=== PATIENT | female | born 1995 | race Caucasian/White ===

== ENCOUNTER 2023-05-22 07:38 | Outpatient (CLI) | payer OTHER, SELFPAY ==
--- NOTE | 2023-05-22 07:39 | CT_ITS ---
FINAL REPORT TECHNIQUE: Thin section axial CT images of the facial bones and sinuses were obtained without contrast. Coronal reformatted images were also obtained.This study was performed with techniques to keep radiation doses as low as reasonably achievable, (ALARA). Individualized dose reduction techniques using automated exposure control or adjustment of mA and/or kV according to the patient''''s size were employed. CLINICAL HISTORY: black substance in sputum, sinus pain and pressure COMPARISON: None FINDINGS: There is mild mucosal thickening in the maxillary sinuses and multiple ethmoid air cells. No sinus fluid levels are identified. The ostiomeatal units have an unremarkable appearance. There is mild rightward nasal septal deviation with right-sided nasal septal spurring. No fracture or acute bony abnormality is identified. IMPRESSION: Mild mucosal thickening maxillary sinuses and ethmoid air cells. Rightward nasal septal deviation with right-sided spurring. Reviewed, Interpreted and Dictated by Huey Garcia III, MD Transcribed by Kathie Diehl Authenticated and . [facility]
== END 2023-05-22 23:59 ==
LOC: RAD 07:39
PROVIDERS: PCP Nurse Practitioner Family; Visit Provider Nurse Practitioner
DX: J34.3 Hypertrophy of nasal turbinates (principal); J34.89 Other specified disorders of nose and nasal sinuses
CPT/HCPCS: 70486

== ENCOUNTER 2023-05-22 12:40 | Emergency (ER) | payer OTHER, SELFPAY ==
[2023-05-22 12:54] VITALS: BP 121/92; PULSE 68; RESP 18; O2SAT 100; BMI 21.7
--- NOTE | 2023-05-22 13:39 | CT_ITS ---
FINAL REPORT CLINICAL HISTORY: new and persistent headache COMPARISON: None FINDINGS: Axial images of the head were obtained without contrast. Coronal and sagittal reformatted images were also obtained.This study was performed with techniques to keep radiation doses as low as reasonably achievable (ALARA). Individualized dose reduction techniques using automated exposure control or adjustment of mA and/or kV according to the patient's size were employed. There is no evidence of intracranial hemorrhage or mass. The ventricular size is within normal limits. There is no evidence of shift of the midline structures. No abnormal extra axial fluid collection is identified. No skull abnormality is seen on the bone window images. IMPRESSION: No acute intracranial abnormality. Reviewed, Interpreted and Dictated by Huey Garcia III, MD Transcribed by Xin Bales Authenticated and [facility]
--- NOTE | 2023-05-22 13:43 | ED_ITS ---
Discharge Plan Disposition Patient Disposition: Home, Self-Care Prescriptions Prescriptions: No Action gabapentin 100 mg capsule 100 mg PO HS Referrals Follow up/Referrals: Neelam Barbosa APRN [Primary Care Provider] - See instructions Rudy Davis MD [Physician] - See instructions Activity Restrictions/Add. Instructions Additional Instructions/Restrictions: No evidence of emergent medical condition identified today. Specifically had a normal vaginal exam and at this point I suspect that it is very unlikely that you have a respiratory fungal infection as well. Fungal cultures have been sent from your sputum as well as from your vaginal swab. Please follow-up with Dr. Davis. His clinic should call you for an appointment. Initially I would recommend you follow-up with your primary care doctor and your neurologist as previously instructed. Clinical Impressions Clinical Impression: Chronic headaches, Vaginal discharge Instructions Patient Instructions: DI for Urinary Tract Infection (UTI), DI for Urinary Tract Infection in Children Discharge ED Provider: Ata Resendiz General Adult HPI General Chief complaint: Urogenital-Female Stated complaint: Headaches, coughing up black stuff, sen by Kulwinder Hardy Time Seen by Provider: 05/22/23 13:15 Mode of Arrival: Ambulatory Source of Information: Patient Limitations: No Limitations Description of Symptoms (Recalled from ER Triage Doc. by RN): patient reports she was sent over from the ENT office. patient was being seen for black discharge coming from her nose since February. Patient reports in the last week she is also having the same discharge coming from her vagina. Patient is also having severe headaches and neck pain. History of Present Illness HPI narrative: Is a 27-year-old female here with chronic symptoms acutely very concerning to her. She states that she started having some cough in February and March and April with black sputum production. She has pictures of this but this is since improved significantly she still has some respiratory symptoms but primarily drainage down the posterior aspect of her throat and significant sinus pressure and pain and headaches which have been persistent for several weeks. She is immunocompetent and has no history of HIV or other immunosuppressive diseases. No history of bacterial and fungal infections in the past. Of note she also states she been having some black fungal discharge from her vagina which she was concerned about. No fevers or chills no meningismus no focal neurologic deficits or any other medical problems. Related Data Home Medications Medication Instructions Recorded Confirmed gabapentin 100 mg capsule 100 mg PO HS 05/12/23 05/22/23 Allergies Allergy/AdvReac Type Severity Reaction Status Date / Time No Known Allergies Allergy Verified 05/22/23 12:34 [facility] Disclaimer: The information contained in this section may have been updated after the patient was seen, as this information can be updated by other users. Medical History (Updated 05/22/23 @ 13:41 by Ata Resendiz MD) Anxiety Endometriosis Headache Hypertrophy of nasal turbinates Mitral valve prolapse Sinus drainage Vaginal discharge Surgical History H/O bladder repair surgery Social History Smoking Status: Never smoker alcohol intake: current current occupational status: unemployed Travel in the last 8 weeks: Inside the [place] ROS Obtained: Yes All systems reviewed & no additional complaints except as documented Physical Exam General General appearance: alert ENT ENT exam: Present normal exam, normal oropharynx and normal external ear exam Respiratory Respiratory exam: Present normal lung sounds bilaterally and respiratory distress Cardiovascular Cardiovascular exam: Present regular rate and normal rhythm Abdominal Exam Abdominal exam: Present soft; Absent distention or tenderness External exam: Present normal external exam Speculum exam: Present normal speculum exam and other (Pacifically no evidence of any black discharge fungal abnormalities or mass); Absent erythema, vaginal discharge, cervical discharge, vaginal bleeding or foreign body Neurological Exam Neurological exam: Present alert and oriented X3 Medical Decision Making Jeff Inquiry Pt receiving controlled substance: No Vital Signs: 05/22/23 12:54 05/22/23 14:09 05/22/23 14:20 Temperature Temperature Source Pulse Rate 92 H 101 H Pulse Rate [Right Brachial] 68 Respiratory Rate 18 20 20 Blood Pressure 135/89 131/85 Blood Pressure [Right Arm] 121/92 H Blood Pressure Mean 110 100 Blood Pressure Mean [Right Arm] 101 Blood Pressure Source [Right Arm] Automatic Cuff Blood Pressure Position [Right Arm] Sitting 02 Sat by Pulse Oximetry 100 99 97 Oxygen Delivery Method Room Air 05/22/23 14:40 05/22/23 15:15 Temperature 98.3 F Temperature Source Oral Pulse Rate 66 90 Pulse Rate [Right Brachial] Respiratory Rate 18 16 Blood Pressure 109/64 L 122/77 Blood Pressure [Right Arm] Blood Pressure Mean 79 Blood Pressure Mean [Right Arm] Blood Pressure Source [Right Arm] Blood Pressure Position [Right Arm] 02 Sat by Pulse Oximetry 98 Oxygen Delivery Method Room Air Lab Data Lab results reviewed: Yes I reviewed the patient's lab results. Lab Results 05/22/23 14:00: WBC 6.2, RBC 4.67, Hgb 14.9, Hct 42.9, MCV 91.7, MCH 32.0 H, MCHC 34.8, RDW 12.2, Plt Count 240, MPV 7.9, Neut % (Auto) 53.6, Lymph % (Auto) 35.3, Mcduffie % (Auto) 7.1, Eos % (Auto) 3.2, Baso % (Auto) 0.8, Neut # (Auto) 3.3, Lymph # (Auto) 2.2, Mcduffie # (Auto) 0.4, Eos # (Auto) 0.2, Baso # (Auto) 0.1, Sodium 139, Potassium 4.4, Chloride 105, Carbon Dioxide 27, Anion Gap 11.4, BUN 13, Creatinine 0.60, Estimated Creat Clear 139, Estimated GFR 122, Est GFR ( Amer) 147, Glucose 92, Calcium 9.4, Total Bilirubin 0.8, AST 37 H, ALT 22, Alkaline Phosphatase 56, Total Protein 7.8, Albumin 5.1 H, Globulin 2.7, Albumin/Globulin Ratio 1.9 H 05/22/23 14:00 05/22/23 14:00 Orders (Tests/Meds): ED MEDICATIONS Discontinued Medications Generic Name Dose Route Start Last Admin Trade Name Freq PRN Reason Stop Dose Admin Dexamethasone Sodium Phosphate 10 mg 05/22/23 13:39 05/22/23 14:11 Dexamethasone 4mg/Ml 1ml Vial IV 05/22/23 13:40 10 mg ONCE ONE Administration Diphenhydramine HCl 25 mg 05/22/23 13:39 05/22/23 14:06 Diphenhydramine 50mg/Ml Vial IV 05/22/23 13:40 25 mg ONCE ONE Administration Ketorolac Tromethamine 15 mg 05/22/23 13:39 05/22/23 14:11 Ketorolac 30mg/Ml Vial IV 05/22/23 13:40 15 mg ONCE ONE Administration Prochlorperazine Edisylate 10 mg 05/22/23 13:39 05/22/23 14:04 Prochlorperazine 10mg/2ml Vial IV 05/22/23 13:40 10 mg ONCE ONE Administration ORDERS Category Date Time Status CT head/brain wo con Stat Cat Scan 05/22/23 13:39 Completed CBC w/Auto Diff [Complete Blood Count Auto Diff] Stat Lab 05/22/23 14:00 Completed CMP [Comprehensive Metabolic Panel] Stat Lab 05/22/23 14:00 Completed Fungus Culture With Stain Routine Micro 05/22/23 14:32 Received Fungus Culture With Stain Routine Micro 05/22/23 14:32 Received Medical Decision Narrative: Is a well-appearing 27-year-old female here with multiple complaints including chronic worsening headache sinus pressure black discharge from her sputum and nose as well as from her vagina. It is exceedingly unlikely that this is mucormycosis in this immunocompetent patient she also saw ENT today had a scope and sinus CTs which were unremarkable. I had extensive discussion with her about neck step. I also spoke with our cosmetic consultant Dr. Davis about this. We will get fungal cultures from her sputum as well as from her vagina I will also do a pelvic exam and do a noncontrasted CT scan of her head. I discussed with her the risk and benefits of doing a lumbar puncture I think it is exceedingly unlikely that she has chronic fungal meningitis. We made an appointment with her with her cosmetic consultant for early next week I will also give her migraine cocktail and reassess CT scan performed which I first interpreted shows no acute intracranial abnormality awaiting radiology read. In the meantime I did a pelvic exam which was normal internally and externally. No evidence of any black discharge or fungal breakdown or inflammation etc. She was reassured about this. Her headache is improving at this point at 2:31 PM as well. Reassessment patient feeling much better reassured serial exams normal patient was discharged in stable condition will follow with Dr. Kahn outpatient. Critical Care Critical Care Time Critical Care Time: No
--- NOTE | 2023-05-22 13:50 | PC.NURSE ---
speaking with MD Yg at this time
[2023-05-22] MEDS: PROCHLORPERAZINE 10MG/2ML VIAL 10 MG IV (14:04)
[2023-05-22] MEDS: diphenhydrAMINE 50MG/ML VIAL 25 MG IV (14:06)
[2023-05-22 14:09] VITALS: BP 135/89; PULSE 92; RESP 20; O2SAT 99
[2023-05-22] MEDS: DEXAMETHASONE 4MG/ML 1ML VIAL 10 MG IV (14:11)
[2023-05-22] MEDS: KETOROLAC 30MG/ML VIAL 15 MG IV (14:11)
[2023-05-22 14:20] VITALS: BP 131/85; PULSE 101; RESP 20; O2SAT 97
[2023-05-22 14:24] LABS: Basophils # 0.1 K/mm3 (0-0.2); Basophils % 0.8 % (0.1-2.0); Eosinophils # 0.2 K/mm3 (0.0-0.4); Eosinophils % 3.2 % (0.1-12.0); Hematocrit 42.9 % (37.0-47.0); Hemoglobin 14.9 g/dL (12.2-16.2); Lymphocytes # 2.2 K/mm3 (0.7-4.5); Lymphocytes % 35.3 % (10-50); Mean Corpuscular HGB Conc 34.8 g/dL (31.8-35.4); Mean Corpuscular Volume 91.7 fl (81-99); Mean Platelet Volume 7.9 fl (7.4-10.4); Monocytes # 0.4 K/mm3 (0.1-1.0); Monocytes % 7.1 % (1.7-9.3); Neutrophils # 3.3 K/mm3 (1.8-7.8); Neutrophils % 53.6 % (37.0-80.0); Platelet Count 240 K/mm3 (142-424); Red Blood Count 4.67 M/mm3 (4.20-5.40); Red Cell Distribution Width 12.2 % (11.5-17.5); White Blood Count 6.2 K/mm3 (4.8-10.8)
[2023-05-22 14:28] LABS: Alanine Aminotransferase 22 U/L (12-78); Albumin Level 5.1 g/dl (3.5-5.0); Albumin/Globulin Ratio 1.9 (1.1-1.8); Alkaline Phosphatase 56 U/L (38-126); Anion Gap 11.4 mEq/L (5-15); Aspartate Amino Transferase 37 U/L (14-36); Bilirubin,Total 0.8 mg/dl (0.2-1.3); Blood Urea Nitrogen 13 mg/dl (7-17); Calcium 9.4 mg/dl (8.4-10.2); Carbon Dioxide 27 mmol/L (22.0-30.0); Chloride 105 mmol/L (98-107); Creatinine Clearance Estimated 139 mL/min (50-200); Estimated Glomerular Filt Rate 122 ml/min (>60); GFR (African American) 147 ML/MIN (>60); Globulin 2.7 g/dL (1.3-3.2); Glucose 92 mg/dl (74-100); Potassium 4.4 mmoL/L (3.5-5.1); Sodium 139 mmol/L (136-145); Total Protein,Serum 7.8 g/dl (6.3-8.2)
[2023-05-22 14:40] VITALS: BP 109/64; PULSE 66; RESP 18; O2SAT 98
[2023-05-22 15:15] VITALS: BP 122/77; PULSE 90; RESP 16; TEMP 36.8; O2SAT 98
== END 2023-05-22 15:17 | disposition home or self-care (01) ==
PROVIDERS: Emergency Provider Student in an Organized Health Care Education/Training Program; PCP Nurse Practitioner Family
DX: G44.89 Other headache syndrome (principal); N89.8 Other specified noninflammatory disorders of vagina
CPT/HCPCS: 70450; 80053; 85025; 87102; 87206; 87210; 87220; 96374; 96375; 99285